=== PATIENT | male | born 1980 | race Caucasian/White ===

== ENCOUNTER 2019-02-17 11:54 | Inpatient (IN) | payer OTHER ==
[2019-02-17] MEDS ORDERED: FENTANYL CITRATE INJ/PF 100 MCG/2 ML AMPUL IV ONE ×2 (12:22→13:37)
[2019-02-17] MEDS ORDERED: ONDANSETRON HCL INJ/PF 4 MG/2 ML SDV IV ONE (12:22)
--- NOTE | 2019-02-17 12:27 | ER Document Report ---
ED Medical Screen (RME) - General Chief Complaint: Abdominal Pain Stated Complaint: ABDOMINAL PAIN Time Seen by Provider: 02/17/19 12:19 Primary Care Provider: ERNIE BOWLES MD [Primary Care Provider] - Follow up as needed Notes: Patient is a 38-year-old male presents to the emergency department with generalized epigastric and right upper quadrant abdominal pain. Patient states he started with generalized pain and vomiting this morning. Patient's denying any blood in his emesis. Patient states he has generalized pain right upper quadrant and epigastric. Patient is denying any ripping or tearing sensation through to his back. Patient's denying any history of hypertension although was hypertensive in the emergency room. Patient is denying any abdominal surgeries. GENERAL: Alert, interacts well. Obvious distress, intermittently moaning and holding his right upper quadrant. ABDOMEN: Generalized tenderness noted right upper quadrant and epigastric region. No tenderness noted right lower quadrant, left lower quadrant. I have greeted and performed a rapid initial assessment of this patient. A comprehensive ED assessment and evaluation of the patient, analysis of test results and completion of the medical decision making process will be conducted by additional ED providers. I have specifically instructed the patient or family members with the patient to immediately return to any nursing staff should anything change in the patient's condition or with their chief complaint. This medical record was dictated with voice recognizing software. There may be grammatical, syntax errors that are unintended. - Related Data Allergies/Adverse Reactions: amoxicillin Allergy (Verified 02/17/19 12:10) Physical Exam - Vital signs Vitals: Temp Pulse Resp BP Pulse Ox 98.2 F 71 24 H 188/99 H 97 02/17/19 12:05 02/17/19 12:05 02/17/19 12:05 02/17/19 12:05 02/17/19 12:05 Course - Vital Signs Vital signs: Temp Pulse Resp BP Pulse Ox 98.2 F 71 24 H 188/99 H 97 02/17/19 12:05 02/17/19 12:05 02/17/19 12:05 02/17/19 12:05 02/17/19 12:05 Doctor's Discharge - Discharge Referrals: ERNIE BOWLES MD [Primary Care Provider] - Follow up as needed
[2019-02-17 13:01] LABS: APPEARANCE,URINE CLEAR; BILIRUBIN,URINE NEGATIVE (NEGATIVE); COLOR,URINE YELLOW; GLUCOSE, URINE NEGATIVE (NEGATIVE); KETONES,URINE NEGATIVE (NEGATIVE); LEUKOCYTE ESTERASE,URINE NEGATIVE (NEGATIVE); NITRITE,URINE NEGATIVE (NEGATIVE); PROTEIN,URINE NEGATIVE (NEGATIVE); URINE SPECIFIC GRAVITY 1.023; UROBILINOGEN,URINE NEGATIVE mg/dL (<2.0)
[2019-02-17 13:09] LABS: ABSOLUTE MONOCYTES (AUTO) 0.5 10^3/uL (0.1-1.4); ABSOLUTE NEUT (AUTO) 14.6 10^3/uL (1.7-8.2); BASOPHILS % (AUTO) 0.1 % (0-2); HEMATOCRIT 47.9 % (37.9-51.0); HEMOGLOBIN 16.4 g/dL (13.5-17.0); MEAN CORPUSCULAR HEMOGLOBIN 30.6 pg (27.0-33.4); MEAN CORPUSCULAR HGB CONC 34.2 g/dL (32.0-36.0); MEAN CORPUSCULAR VOLUME 89 fl (80-97); PLATELET COUNT 291 10^3/uL (150-450); RED BLOOD COUNT 5.36 10^6/uL (4.35-5.55); RED CELL DISTRIBUTION WIDTH 14.2 % (11.5-14.0); SEGMENTED NEUTROPHILS % (AUTO) 90.9 % (42-78); TOTAL CELLS COUNTED % (AUTO) 100 %; WHITE BLOOD COUNT 16.1 10^3/uL (4.0-10.5)
[2019-02-17] MEDS ORDERED: RINGERS SOLUTION,LACTATED 1,000 ML IV ONE (13:37)
--- NOTE | 2019-02-17 13:39 | ER Document Report ---
ED General - General Chief Complaint: Abdominal Pain Stated Complaint: ABDOMINAL PAIN Time Seen by Provider: 02/17/19 12:19 Primary Care Provider: ERNIE BOWLES MD [ACTIVE STAFF] - Follow up as needed Notes: Patient is a 38-year-old male that presents to the emergency department for chief complaint of epigastric pain. Patient states the pain started on 230am this morning, describes it in the right side of his abdomen as well as the epigastric region worse the worse, describes it as a sharp stabbing pain, and currently as a 5 out of 10 after receiving fentanyl in triage. It associated nausea and vomiting but denies diarrhea. He has not had pain like this before. He apparently is in town for his father's , and has been drinking excessively over the past 2 days. He denies any recent fevers, chills, night sweats, sick contacts, chest pain, shortness of breath, difficulty breathing, dysuria or hematuria. Past Medical History: Denies chronic medical conditions Past Surgical History: Skin cyst removals Social History: Admits to smoking cigarettes, occasional alcohol use, denies illicit drug use. Family History: Reviewed and noncontributory for presenting illness Allergies: Reviewed, see documented allergy list. REVIEW OF SYSTEMS: Other than noted above, the 12 point review of systems was reviewed with the patient and were negative, all pertinent findings are included in the HPI. PHYSICAL EXAMINATION: Vital signs reviewed, nursing noted reviewed. GENERAL: Patient appears uncomfortable on exam, but in no immediate distress. HEAD: Atraumatic, normocephalic. EYES: Eyes appear normal, extraocular movements intact, sclera anicteric, conjunctiva are normal. ENT: nares patent, oropharynx clear without exudates. Moist mucous membranes. NECK: Normal range of motion, supple without lymphadenopathy LUNGS: Breath sounds clear to auscultation bilaterally and equal. No wheezes rales or rhonchi. HEART: Regular rate and rhythm without murmurs ABDOMEN: Soft, epigastric tenderness to palpation, mild right upper quadrant tenderness to palpation, negative Saini sign., normoactive bowel sounds. No rebound, guarding, or rigidity. No masses appreciated. EXTREMITIES: Nontender, good range of motion, no pitting or edema. NEUROLOGICAL: No focal neurological deficits. Moves all extremities spontaneously Motor and sensory grossly intact on exam. PSYCH: Normal mood, normal affect. SKIN: Warm, Dry, normal turgor, no rashes or lesions noted on exposed skin - Related Data Allergies/Adverse Reactions: amoxicillin Allergy (Verified 02/17/19 12:10) Past Medical History - Social History Smoking Status: Current Every Day Smoker Frequency of alcohol use: Occasional Drug Abuse: None Family History: Reviewed & Not Pertinent Patient has suicidal ideation: No Patient has homicidal ideation: No Renal/ Medical History: Denies: Hx Peritoneal Dialysis Physical Exam - Vital signs Vitals: Temp Pulse Resp BP Pulse Ox 98.2 F 71 24 H 188/99 H 97 02/17/19 12:05 02/17/19 12:05 02/17/19 12:05 02/17/19 12:05 02/17/19 12:05 Course - Re-evaluation Re-evalutation: Patient seen and examined vital signs reviewed. Laboratory data and imaging were ordered as appropriate for the patient's presenting symptoms and complaint, with consideration of any critical or life threatening conditions that may be associated with their obtained history and exam as noted above. Patient was treated with IVF and analgesics Results were reviewed when available and demonstrated leukocytosis and markedly elevated lipase The patient was re-evaluated and was still having pain and therefore treated with additional pain medications Evaluation was most consistent with acute alcohol induced pancreatitis. Results were discussed with the patient at this point after careful consideration I feel that that patient should be admitted to the hospital. This was discussed with the patient that it is in the best interest for their care to be admitted for further evaluation and management. Patient agreed with this plan of care. A call was placed to the admitting physician, Dr. Jeff who graciously accepted the patient onto their service. *Note is created using voice recognition software and may contain spelling, syntax or grammatical errors. Laboratory 02/17/19 02/17/19 02/17/19 12:30 12:47 12:47 WBC 16.1 H RBC 5.36 Hgb 16.4 Hct 47.9 MCV 89 MCH 30.6 MCHC 34.2 RDW 14.2 H Plt Count 291 Seg Neutrophils % 90.9 H Lymphocytes % 6.0 L Monocytes % 3.0 Eosinophils % 0.0 Basophils % 0.1 Absolute Neutrophils 14.6 H Absolute Lymphocytes 1.0 Absolute Monocytes 0.5 Absolute Eosinophils 0.0 Absolute Basophils 0.0 Sodium Cancelled Potassium Cancelled Chloride Cancelled Carbon Dioxide Cancelled Anion Gap Cancelled BUN Cancelled Creatinine Cancelled Est GFR ( Amer) Cancelled Est GFR (Non-Af Amer) Cancelled Glucose Cancelled Calcium Cancelled Total Bilirubin Cancelled Direct Bilirubin Cancelled Neonat Total Bilirubin Cancelled Neonat Direct Bilirubin Cancelled Neonat Indirect Bili Cancelled AST Cancelled ALT Cancelled Alkaline Phosphatase Cancelled Total Protein Cancelled Albumin Cancelled Lipase Cancelled Urine Color YELLOW Urine Appearance CLEAR Urine pH 5.0 Ur Specific [place] 1.023 Urine Protein NEGATIVE Urine Glucose (UA) NEGATIVE Urine Ketones NEGATIVE Urine Blood NEGATIVE Urine Nitrite NEGATIVE Urine Bilirubin NEGATIVE Urine Urobilinogen NEGATIVE Ur Leukocyte Esterase NEGATIVE Urine WBC (Auto) 0 Squamous Epi Cells Auto <1 Urine Mucus (Auto) OCC Urine Ascorbic Acid NEGATIVE 02/17/19 14:43 WBC RBC Hgb Hct MCV MCH MCHC RDW Plt Count Seg Neutrophils % Lymphocytes % Monocytes % Eosinophils % Basophils % Absolute Neutrophils Absolute Lymphocytes Absolute Monocytes Absolute Eosinophils Absolute Basophils Sodium 139.9 Potassium 4.6 Chloride 101 Carbon Dioxide 29 Anion Gap 10 BUN 14 Creatinine 0.76 Est GFR ( Amer) > 60 Est GFR (Non-Af Amer) > 60 Glucose 127 H Calcium 9.9 Total Bilirubin 0.5 Direct Bilirubin 0.2 Neonat Total Bilirubin Not Reportable Neonat Direct Bilirubin Not Reportable Neonat Indirect Bili Not Reportable AST 38 ALT 57 Alkaline Phosphatase 109 Total Protein 7.3 Albumin 4.5 Lipase 3128.2 H Urine Color Urine Appearance Urine pH Ur Specific [place] Urine Protein Urine Glucose (UA) Urine Ketones Urine Blood Urine Nitrite Urine Bilirubin Urine Urobilinogen Ur Leukocyte Esterase Urine WBC (Auto) Squamous Epi Cells Auto Urine Mucus (Auto) Urine Ascorbic Acid Abdomen Ultrasound 02/17/19 12:23 IMPRESSION: Fatty liver. Spleen size upper limits of normal. - Vital Signs Vital signs: Temp Pulse Resp BP Pulse Ox 98.2 F 71 26 H 157/67 H 95 02/17/19 12:05 02/17/19 12:05 02/17/19 14:01 02/17/19 14:01 02/17/19 14:01 - Laboratory Result Diagrams: 02/17/19 12:47 02/17/19 14:43 Laboratory results interpreted by me: 02/17/19 02/17/19 12:47 14:43 WBC 16.1 H RDW 14.2 H Seg Neutrophils % 90.9 H Lymphocytes % 6.0 L Absolute Neutrophils 14.6 H Glucose 127 H Lipase 3128.2 H Discharge - Discharge Clinical Impression: Acute pancreatitis Qualifiers: Pancreatitis type: alcohol induced Acute pancreatitis complication: unspecified Qualified Code(s): K85.20 - Alcohol induced acute pancreatitis without necrosis or infection Leukocytosis Qualifiers: Leukocytosis type: unspecified Qualified Code(s): D72.829 - Elevated white blood cell count, unspecified Condition: Stable Disposition: ADMITTED INPATIENT Admitting Provider: Tomer (Hospitalist) Unit Admitted: Medical Floor Referrals: ERNIE BOWLES MD [ACTIVE STAFF] - Follow up as needed
--- NOTE | 2019-02-17 13:41 | RADIOLOGY REPORT (SQ) ---
EXAM DESCRIPTION: U/S ABDOMEN COMPLETE W/O DOP COMPLETED DATE/TIME: 02/17/2019 1:22 pm REASON FOR STUDY: RUQ pain COMPARISON: None. TECHNIQUE: Dynamic and static grayscale images acquired of the abdomen and recorded on PACS. Farhato yogesh selected color Doppler and spectral images recorded. LIMITATIONS: Body habitus. Overlying bowel gas. FINDINGS: PANCREAS: Obscured. LIVER: Echotexture is coarse with increased echogenicity consistent with fatty infiltration. LIVER VASCULATURE: Normal directional flow of the main portal vein and hepatic veins. GALLBLADDER: No stones. Normal wall thickness. No pericholecystic fluid. ULTRASOUND-DETECTED JOYNER'S SIGN: Negative. INTRAHEPATIC DUCTS AND COMMON DUCT: CBD and intrahepatic ducts normal caliber. No filling defects. INFERIOR VENA CAVA: Normal flow. AORTA: No aneurysm. RIGHT KIDNEY: Normal size. Normal echogenicity. No solid or suspicious masses. No hydronephros is. No calcifications. LEFT KIDNEY: Normal size. Normal echogenicity. No solid or suspicious masses. No hydronephrosi s. No calcifications. SPLEEN:Upper limits normal size 13.7 cm. No solid masses. PERITONEAL AND PLEURAL SPACES: No ascites or effusions. OTHER: No other significant finding. IMPRESSION: Fatty liver. Spleen size upper limits of normal. TECHNICAL DOCUMENTATION: JOB ID: [id number] [employer]- All Rights Reserved Reading location - IP/workstation name: [email or web address]
[2019-02-17 15:18] LABS: ALANINE AMINOTRANSFERASE 57 U/L (21-72); ALBUMIN 4.5 g/dL (3.5-5.0); ALKALINE PHOSPHATASE 109 U/L (38-126); ANION GAP 10 (5-19); ASPARTATE AMINO TRANSFERASE 38 U/L (17-59); BILIRUBIN,DIRECT 0.2 mg/dL (0.0-0.4); BILIRUBIN,TOTAL 0.5 mg/dL (0.2-1.3); BLOOD UREA NITROGEN 14 mg/dL (7-20); CALCIUM 9.9 mg/dL (8.4-10.2); CARBON DIOXIDE 29 mmol/L (22-30); CHLORIDE 101 mmol/L (98-107); GLUCOSE 127 mg/dL (75-110); POTASSIUM 4.6 mmol/L (3.6-5.0); SODIUM 139.9 mmol/L (137-145); TOTAL PROTEIN 7.3 g/dL (6.3-8.2)
[2019-02-17 15:28] LABS: LIPASE 3128.2 U/L (23-300)
[2019-02-17] MEDS ORDERED: HYDROMORPHONE HCL INJ/PF 2 MG/ML AMPULE IV ONE ×2 (15:37→16:06)
[2019-02-17] MEDS ORDERED: NORMAL SALINE 1000 ML 1,000 ML IV ONE (15:37)
[2019-02-17] MEDS ORDERED: ONDANSETRON HCL INJ/PF 4 MG/2 ML SDV IV PRN (16:03)
[2019-02-17] MEDS ORDERED: NICOTINE 14 MG/24 HR PATCH.TD24 TD ONE (16:17)
--- NOTE | 2019-02-17 16:17 | PDOC H&P ---
History of Present Illness History of Present Illness: MARITO SORENSEN is a 38 year old male patient with no other chronic medical condition except for obesity and tobacco dependence presented with chief complaint of epigastric colicky pain. The patient been perfectly good state of health up until 2:30 AM this morning when he started to have colicky abdominal pain localized to his epigastric area and radiating into his back. Of note patient has been binge drinking for the last 48 hours. He has associated nausea and vomiting but denies diarrhea. Patient is in [place] to attend the of his father. His initial blood work shows leukocytosis of 16,000 and markedly elevated lipase of 3100. Social History Smoking Status: Current Every Day Smoker - Advance Directive Resuscitation Status: Full Code Family History Family History: Reviewed & Not Pertinent Parental Family History Reviewed: Yes Children Family History Reviewed: Yes Sibling(s) Family History Reviewed.: Yes Medication/Allergy Home Medications: No Home Medications 02/17/19 Allergies/Adverse Reactions: amoxicillin Allergy (Verified 02/17/19 12:10) Review of Systems Constitutional: ABSENT: chills, fever(s), headache(s), weight gain, weight loss Eyes: ABSENT: visual disturbances Ears: ABSENT: hearing changes Cardiovascular: ABSENT: chest pain, dyspnea on exertion, edema, orthropnea, palpitations Respiratory: ABSENT: cough, hemoptysis Gastrointestinal: PRESENT: abdominal pain, nausea, vomiting Genitourinary: ABSENT: dysuria, hematuria Musculoskeletal: ABSENT: joint swelling Integumentary: ABSENT: rash, wounds Neurological: ABSENT: abnormal gait, abnormal speech, confusion, dizziness, focal weakness, syncope Psychiatric: ABSENT: anxiety, depression, homidical ideation, suicidal ideation Endocrine: ABSENT: cold intolerance, heat intolerance, polydipsia, polyuria Hematologic/Lymphatic: ABSENT: easy bleeding, easy bruising Physical Exam Vital Signs: Temp Pulse Resp BP Pulse Ox 98.2 F 71 26 H 157/67 H 95 02/17/19 12:05 02/17/19 12:05 02/17/19 14:01 02/17/19 14:01 02/17/19 14:01 Intake & Output 02/16/19 02/17/19 02/18/19 06:59 06:59 06:59 Weight 130.635 kg General appearance: PRESENT: no acute distress, obese, well-developed, well- nourished Head exam: PRESENT: atraumatic, normocephalic Eye exam: PRESENT: conjunctiva pink, EOMI, PERRLA. ABSENT: scleral icterus Ear exam: PRESENT: normal external ear exam Mouth exam: PRESENT: moist, tongue midline Neck exam: ABSENT: carotid bruit, JVD, lymphadenopathy, thyromegaly Respiratory exam: PRESENT: clear to auscultation niels. ABSENT: rales, rhonchi, wheezes Cardiovascular exam: PRESENT: RRR. ABSENT: diastolic murmur, rubs, systolic murmur Pulses: PRESENT: normal dorsalis pedis pul Vascular exam: PRESENT: normal capillary refill GI/Abdominal exam: PRESENT: normal bowel sounds, soft, tenderness. ABSENT: distended, guarding, mass, organolmegaly, rebound Rectal exam: PRESENT: deferred Extremities exam: PRESENT: full ROM. ABSENT: calf tenderness, clubbing, pedal edema Neurological exam: PRESENT: alert, awake, oriented to person, oriented to place, oriented to time, oriented to situation, CN II-XII grossly intact. ABSENT: motor sensory deficit Psychiatric exam: PRESENT: appropriate affect, normal mood. ABSENT: homicidal ideation, suicidal ideation Skin exam: PRESENT: dry, intact, warm. ABSENT: cyanosis, rash Results Laboratory Results: 02/17/19 12:47 02/17/19 14:43 02/17/19 02/17/19 02/17/19 12:30 12:47 12:47 WBC 16.1 H RBC 5.36 Hgb 16.4 Hct 47.9 MCV 89 MCH 30.6 MCHC 34.2 RDW 14.2 H Plt Count 291 Seg Neutrophils % 90.9 H Lymphocytes % 6.0 L Monocytes % 3.0 Eosinophils % 0.0 Basophils % 0.1 Absolute Neutrophils 14.6 H Absolute Lymphocytes 1.0 Absolute Monocytes 0.5 Absolute Eosinophils 0.0 Absolute Basophils 0.0 Sodium Cancelled Potassium Cancelled Chloride Cancelled Carbon Dioxide Cancelled Anion Gap Cancelled BUN Cancelled Creatinine Cancelled Est GFR ( Amer) Cancelled Est GFR (Non-Af Amer) Cancelled Glucose Cancelled Calcium Cancelled Total Bilirubin Cancelled AST Cancelled ALT Cancelled Alkaline Phosphatase Cancelled Total Protein Cancelled Albumin Cancelled Lipase Cancelled Urine Color YELLOW Urine Appearance CLEAR Urine pH 5.0 Ur Specific [place] 1.023 Urine Protein NEGATIVE Urine Glucose (UA) NEGATIVE Urine Ketones NEGATIVE Urine Blood NEGATIVE Urine Nitrite NEGATIVE Ur Leukocyte Esterase NEGATIVE Urine WBC (Auto) 0 02/17/19 14:43 WBC RBC Hgb Hct MCV MCH MCHC RDW Plt Count Seg Neutrophils % Lymphocytes % Monocytes % Eosinophils % Basophils % Absolute Neutrophils Absolute Lymphocytes Absolute Monocytes Absolute Eosinophils Absolute Basophils Sodium 139.9 Potassium 4.6 Chloride 101 Carbon Dioxide 29 Anion Gap 10 BUN 14 Creatinine 0.76 Est GFR ( Amer) > 60 Est GFR (Non-Af Amer) > 60 Glucose 127 H Calcium 9.9 Total Bilirubin 0.5 AST 38 ALT 57 Alkaline Phosphatase 109 Total Protein 7.3 Albumin 4.5 Lipase 3128.2 H Urine Color Urine Appearance Urine pH Ur Specific [place] Urine Protein Urine Glucose (UA) Urine Ketones Urine Blood Urine Nitrite Ur Leukocyte Esterase Urine WBC (Auto) Impressions: Abdomen Ultrasound 02/17/19 12:23 IMPRESSION: Fatty liver. Spleen size upper limits of normal. Assessment and Plan - Diagnosis (1) Acute alcohol induced pancreatitis Is this a current diagnosis for this admission?: Yes Plan: We will keep the patient n.p.o. to bowel his wrist. We will hydrate him aggressively. We will control his pain. (2) Leukocytosis Qualifiers: Leukocytosis type: unspecified Qualified Code(s): D72.829 - Elevated white blood cell count, unspecified Is this a current diagnosis for this admission?: Yes Plan: We will monitor CBC. (3) Obesity (BMI 30-39.9) Is this a current diagnosis for this admission?: Yes Plan: Lifestyle modification advised (4) Tobacco dependence Is this a current diagnosis for this admission?: Yes Plan: Patient counseled and encouraged to quit smoking. - Inpatient Certification Medical Necessity: Need Close Monitoring Due to Risk of Patient Decompensation, Need For IV Fluids
[2019-02-17] MEDS: HYDROMORPHONE HCL INJ/PF 2 MG/ML AMPULE IV PRN ×2 (16:35→20:06)
[2019-02-17] MEDS: NORMAL SALINE 1000 ML 1,000 ML IV PRN (18:52)
[2019-02-18] MEDS: HYDROMORPHONE HCL INJ/PF 2 MG/ML AMPULE IV PRN ×6 (00:49→22:22)
[2019-02-18] MEDS: NORMAL SALINE 1000 ML 1,000 ML IV PRN ×4 (00:51→20:28)
[2019-02-18 05:30] LABS: ABSOLUTE LYMPHOCYTES (AUTO) 1.2 10^3/uL (0.5-4.7); ABSOLUTE MONOCYTES (AUTO) 0.7 10^3/uL (0.1-1.4); ABSOLUTE NEUT (AUTO) 11.6 10^3/uL (1.7-8.2); BASOPHILS % (AUTO) 0.2 % (0-2); HEMATOCRIT 40.4 % (37.9-51.0); LYMPHOCYTES % (AUTO) 8.7 % (13-45); MEAN CORPUSCULAR HEMOGLOBIN 30.7 pg (27.0-33.4); MEAN CORPUSCULAR HGB CONC 34.5 g/dL (32.0-36.0); MEAN CORPUSCULAR VOLUME 89 fl (80-97); MONOCYTES % (AUTO) 5.3 % (3-13); PLATELET COUNT 224 10^3/uL (150-450); RED BLOOD COUNT 4.54 10^6/uL (4.35-5.55); RED CELL DISTRIBUTION WIDTH 14.2 % (11.5-14.0); SEGMENTED NEUTROPHILS % (AUTO) 85.8 % (42-78); TOTAL CELLS COUNTED % (AUTO) 100 %; WHITE BLOOD COUNT 13.5 10^3/uL (4.0-10.5)
[2019-02-18 05:40] LABS: HEMOGLOBIN 13.9 g/dL (13.5-17.0)
[2019-02-18 06:00] LABS: ALANINE AMINOTRANSFERASE 42 U/L (21-72); ALBUMIN 3.5 g/dL (3.5-5.0); ALKALINE PHOSPHATASE 82 U/L (38-126); ASPARTATE AMINO TRANSFERASE 28 U/L (17-59); BILIRUBIN,DIRECT 0.3 mg/dL (0.0-0.4); BILIRUBIN,TOTAL 0.7 mg/dL (0.2-1.3); BLOOD UREA NITROGEN 12 mg/dL (7-20); CALCIUM 8.8 mg/dL (8.4-10.2); CARBON DIOXIDE 30 mmol/L (22-30); CHLORIDE 103 mmol/L (98-107); CHOLESTEROL 220.71 mg/dL (0-200); GLUCOSE 117 mg/dL (75-110); POTASSIUM 4.7 mmol/L (3.6-5.0); SODIUM 136.9 mmol/L (137-145); TOTAL PROTEIN 5.9 g/dL (6.3-8.2); TRIGLYCERIDES 102 mg/dL (<150)
[2019-02-18 06:11] LABS: DIRECT LDL 161 mg/dL (<100)
[2019-02-18 06:24] LABS: ANION GAP 4 (5-19)
[2019-02-18 06:40] LABS: LIPASE 4525.9 U/L (23-300)
[2019-02-18] MEDS: PANTOPRAZOLE SODIUM 40 MG VIAL IV SCH (09:31)
[2019-02-18] MEDS: ENOXAPARIN SODIUM INJ 40 MG/0.4 ML DISP.SYRIN SUBCUT SCH (09:31)
--- NOTE | 2019-02-18 11:33 | RADIOLOGY REPORT (SQ) ---
EXAM DESCRIPTION: CT ABD/PELVIS WITH IV ONLY COMPLETED DATE/TIME: 02/18/2019 11:04 am REASON FOR STUDY: Pancreatitis COMPARISON: None. TECHNIQUE: CT scan of the abdomen and pelvis performed using helical scanning technique with dynamic intravenous contrast injection. No oral contrast. Images reviewed with lung, soft tissue, and bone windows. Reconstructed coronal and sagittal MPR images reviewed. Delayed images for evaluation of the urinary system also acquired. All images stored on PACS. All CT scanners at this facility use dose modulation, iterative reconstruction, and/or weight based d osing when appropriate to reduce radiation dose to as low as reasonably achievable (ALARA). [facility]: Dose Right [facility]: CareDose [facility]: Dose Right [facility]: Teradose 4D [facility]: Blend Systems CONTRAST TYPE AND DOSE: contrast/concentration: Isovue 350.00 mg/ml; Total Contrast Delivered: 100.0 ml; Total Saline Delivered: 72.0 ml RENAL FUNCTION: GFR > 60. RADIATION DOSE: CT Rad equipment meets quality standard of care and radiation dose reduction techniq ues were employed. CTDIvol: 20.1 - 21.0 mGy. DLP: 2546 mGy-cm.. LIMITATIONS: None. FINDINGS: LOWER CHEST: Atelectasis both lower lobes. LIVER: Normal size. No masses. No dilated ducts. SPLEEN: Normal size. No focal lesions. PANCREAS: Inflammatory changes surrounding the pancreas. No evidence of underlying mass. No evidenc e of necrosis. GALLBLADDER: No identified stones by CT criteria. No inflammatory changes to suggest cholecystitis. ADRENAL GLANDS: No significant masses or asymmetry. RIGHT KIDNEY AND URETER: No solid masses. No significant calcifications. No hydronephrosis or hyd roureter. LEFT KIDNEY AND URETER: No solid masses. No significant calcifications. No hydronephrosis or hydr oureter. AORTA AND VESSELS: No aneurysm. No dissection. Renal arteries, SMA, celiac without stenosis. RETROPERITONEUM: No retroperitoneal adenopathy, hemorrhage or masses. BOWEL AND PERITONEAL CAVITY: No masses or inflammatory changes. No free fluid or peritoneal masses. APPENDIX: Normal. PELVIS: No mass. No free fluid. Normal bladder. ABDOMINAL WALL: No masses. No hernias. BONES: No significant or acute findings. OTHER: No other significant finding. IMPRESSION: Acute pancreatitis. TECHNICAL DOCUMENTATION: JOB ID: [id number] Quality ID # [id number]: Final reports with documentation of one or more dose reduction techniques (e.g., Au tomated exposure control, adjustment of the mA and/or kV according to patient size, use of iterative reconstruction technique) 2010 [employer]- All Rights Reserved Reading location - IP/workstation name: [email or web address]
--- NOTE | 2019-02-18 14:59 | PDOC PROGRESS REPORT ---
Subjective Progress Note for:: 02/18/19 Subjective:: MARITO SORENSEN is a 38 year old male patient with no other chronic medical condition except for obesity and tobacco dependence presented with chief complaint of epigastric colicky pain. The patient been perfectly good state of health up until 2:30 AM this morning when he started to have colicky abdominal pain localized to his epigastric area and radiating into his back. Of note patient has been binge drinking for the last 48 hours. He has associated nausea and vomiting but denies diarrhea. Patient is in [place] to attend the of his father. His initial blood work shows leukocytosis of 16,000 and markedly elevated lipase of 3100. 02/18/2019: Patient seen and examined while resting in bed. He reports his his abdominal pain is still there but relatively better than yesterday. His blood work and images were reviewed. His lipase yesterday was 3100 today it is 4525.9. His LDL is 161. CT of the abdomen and pelvis is done and reported as acute inflammatory changes without fluid collection or necrosis. I will continue the current management with aggressive hydration bowel rest and pain control. Reason For Visit: ALCOHOL INDUCED PANCREATITIS Physical Exam Vital Signs: Temp Pulse Resp BP Pulse Ox 98.4 F 90 18 145/74 H 92 02/18/19 12:00 02/18/19 12:00 02/18/19 12:00 02/18/19 12:00 02/18/19 12:00 Intake & Output 02/17/19 02/18/19 02/19/19 06:59 06:59 06:59 Intake Total 4000 Output Total 1150 Balance 2850 Weight 132 kg General appearance: PRESENT: mild distress Eye exam: PRESENT: conjunctiva pink Neck exam: ABSENT: carotid bruit, JVD, lymphadenopathy, thyromegaly Respiratory exam: PRESENT: clear to auscultation niels. ABSENT: rales, rhonchi, wheezes Cardiovascular exam: PRESENT: RRR. ABSENT: diastolic murmur, rubs, systolic murmur GI/Abdominal exam: PRESENT: normal bowel sounds, soft. ABSENT: distended, guarding, mass, organolmegaly, rebound, tenderness Neurological exam: PRESENT: alert, awake, oriented to person, oriented to time, oriented to situation Results Laboratory Results: 02/18/19 04:52 02/18/19 04:52 02/17/19 02/18/19 02/18/19 14:43 04:52 04:52 WBC 13.5 H RBC 4.54 Hgb 13.9 D Hct 40.4 MCV 89 MCH 30.7 MCHC 34.5 RDW 14.2 H Plt Count 224 Seg Neutrophils % 85.8 H Lymphocytes % 8.7 L Monocytes % 5.3 Eosinophils % 0.0 Basophils % 0.2 Absolute Neutrophils 11.6 H Absolute Lymphocytes 1.2 Absolute Monocytes 0.7 Absolute Eosinophils 0.0 Absolute Basophils 0.0 Sodium 139.9 136.9 L Potassium 4.6 4.7 Chloride 101 103 Carbon Dioxide 29 30 Anion Gap 10 4 L BUN 14 12 Creatinine 0.76 0.75 Est GFR ( Amer) > 60 > 60 Est GFR (Non-Af Amer) > 60 > 60 Glucose 127 H 117 H Calcium 9.9 8.8 Total Bilirubin 0.5 0.7 AST 38 28 ALT 57 42 Alkaline Phosphatase 109 82 Total Protein 7.3 5.9 L Albumin 4.5 3.5 Triglycerides 102 Cholesterol 220.71 H LDL Cholesterol Direct 161 H VLDL Cholesterol 20.0 HDL Cholesterol 38 L Lipase 3128.2 H 4525.9 H Impressions: Abdomen Ultrasound 02/17/19 12:23 IMPRESSION: Fatty liver. Spleen size upper limits of normal. Abdomen/Pelvis CT 02/18/19 00:00 IMPRESSION: Acute pancreatitis. Assessment and Plan - Diagnosis (1) Acute alcohol induced pancreatitis Is this a current diagnosis for this admission?: Yes Plan: Continue current regimen. I will monitor his lipase and CBC daily. (2) Leukocytosis Qualifiers: Leukocytosis type: unspecified Qualified Code(s): D72.829 - Elevated white blood cell count, unspecified Is this a current diagnosis for this admission?: Yes Plan: Trending down from 6.1-13.5. (3) Obesity (BMI 30-39.9) Is this a current diagnosis for this admission?: Yes Plan: Lifestyle modification advised (4) Tobacco dependence Is this a current diagnosis for this admission?: Yes Plan: Patient counseled and encouraged to quit smoking.
[2019-02-19] MEDS: NORMAL SALINE 1000 ML 1,000 ML IV PRN ×3 (00:46→20:00)
[2019-02-19] MEDS: HYDROMORPHONE HCL INJ/PF 2 MG/ML AMPULE IV PRN ×9 (00:46→22:45)
[2019-02-19 06:49] LABS: ABSOLUTE LYMPHOCYTES (AUTO) 0.9 10^3/uL (0.5-4.7); ABSOLUTE NEUT (AUTO) 11.3 10^3/uL (1.7-8.2); BASOPHILS % (AUTO) 0.3 % (0-2); HEMOGLOBIN 12.8 g/dL (13.5-17.0); LYMPHOCYTES % (AUTO) 6.9 % (13-45); MEAN CORPUSCULAR HEMOGLOBIN 30.3 pg (27.0-33.4); MEAN CORPUSCULAR HGB CONC 33.7 g/dL (32.0-36.0); MEAN CORPUSCULAR VOLUME 90 fl (80-97); MONOCYTES % (AUTO) 7.8 % (3-13); PLATELET COUNT 200 10^3/uL (150-450); RED BLOOD COUNT 4.24 10^6/uL (4.35-5.55); RED CELL DISTRIBUTION WIDTH 14.1 % (11.5-14.0); TOTAL CELLS COUNTED % (AUTO) 100 %; WHITE BLOOD COUNT 13.3 10^3/uL (4.0-10.5)
[2019-02-19 07:09] LABS: ANION GAP 6 (5-19); BLOOD UREA NITROGEN 12 mg/dL (7-20); CALCIUM 8.3 mg/dL (8.4-10.2); CARBON DIOXIDE 29 mmol/L (22-30); CHLORIDE 99 mmol/L (98-107); GLUCOSE 99 mg/dL (75-110); LIPASE 868.9 U/L (23-300); POTASSIUM 4.1 mmol/L (3.6-5.0); SODIUM 133.9 mmol/L (137-145)
[2019-02-19] MEDS: PANTOPRAZOLE SODIUM 40 MG VIAL IV SCH (09:16)
[2019-02-19] MEDS: ENOXAPARIN SODIUM INJ 40 MG/0.4 ML DISP.SYRIN SUBCUT SCH (09:16)
[2019-02-19] MEDS: NICOTINE 14 MG/24 HR PATCH.TD24 TD PRN (12:07)
--- NOTE | 2019-02-19 14:41 | PDOC PROGRESS REPORT ---
Subjective Progress Note for:: 02/19/19 Subjective:: MARITO SORENSEN is a 38 year old male patient with no other chronic medical condition except for obesity and tobacco dependence presented with chief complaint of epigastric colicky pain. The patient been perfectly good state of health up until 2:30 AM this morning when he started to have colicky abdominal pain localized to his epigastric area and radiating into his back. Of note patient has been binge drinking for the last 48 hours. He has associated nausea and vomiting but denies diarrhea. Patient is in [place] to attend the of his father. His initial blood work shows leukocytosis of 16,000 and markedly elevated lipase of 3100. 02/18/2019: Patient seen and examined while resting in bed. He reports his his abdominal pain is still there but relatively better than yesterday. His blood work and images were reviewed. His lipase yesterday was 3100 today it is 4525.9. His LDL is 161. CT of the abdomen and pelvis is done and reported as acute inflammatory changes without fluid collection or necrosis. I will continue the current management with aggressive hydration bowel rest and pain control. 02/19/2019: Patient seen while walking on the hallway as well as resting in bed comfortably. He is doing well. Still is n.p.o. His lipase trended down from 4525 to 868. His leukocytosis also resolving. Tomorrow will advance his diet to clear liquid. Reason For Visit: ALCOHOL INDUCED PANCREATITIS Physical Exam Vital Signs: Temp Pulse Resp BP Pulse Ox 100.0 F 84 13 132/59 H 93 02/19/19 11:35 02/19/19 11:35 02/19/19 11:35 02/19/19 11:35 02/19/19 11:35 Intake & Output 02/18/19 02/19/19 02/20/19 06:59 06:59 06:59 Intake Total 4000 4000 1000 Output Total 1150 2200 Balance 2850 1800 1000 Weight 132 kg General appearance: PRESENT: no acute distress Neck exam: ABSENT: carotid bruit, JVD, lymphadenopathy, thyromegaly Respiratory exam: PRESENT: clear to auscultation niels. ABSENT: rales, rhonchi, wheezes Cardiovascular exam: PRESENT: RRR. ABSENT: diastolic murmur, rubs, systolic murmur GI/Abdominal exam: PRESENT: tenderness Neurological exam: PRESENT: alert, awake, oriented to person, oriented to place, oriented to time, oriented to situation Results Laboratory Results: 02/19/19 06:05 02/19/19 06:05 02/19/19 02/19/19 06:05 06:05 WBC 13.3 H RBC 4.24 L Hgb 12.8 L Hct 38.0 MCV 90 MCH 30.3 MCHC 33.7 RDW 14.1 H Plt Count 200 Seg Neutrophils % 85.0 H Lymphocytes % 6.9 L Monocytes % 7.8 Eosinophils % 0.0 Basophils % 0.3 Absolute Neutrophils 11.3 H Absolute Lymphocytes 0.9 Absolute Monocytes 1.0 Absolute Eosinophils 0.0 Absolute Basophils 0.0 Sodium 133.9 L Potassium 4.1 Chloride 99 Carbon Dioxide 29 Anion Gap 6 BUN 12 Creatinine 0.73 Est GFR ( Amer) > 60 Est GFR (Non-Af Amer) > 60 Glucose 99 Calcium 8.3 L Lipase 868.9 H Impressions: Abdomen Ultrasound 02/17/19 12:23 IMPRESSION: Fatty liver. Spleen size upper limits of normal. Abdomen/Pelvis CT 02/18/19 00:00 IMPRESSION: Acute pancreatitis. Assessment and Plan - Diagnosis (1) Acute alcohol induced pancreatitis Is this a current diagnosis for this admission?: Yes Plan: Continue current regimen. I will monitor his lipase and CBC daily. (2) Leukocytosis Qualifiers: Leukocytosis type: unspecified Qualified Code(s): D72.829 - Elevated white blood cell count, unspecified Is this a current diagnosis for this admission?: Yes Plan: Trending down from 6.1-13.5. (3) Obesity (BMI 30-39.9) Is this a current diagnosis for this admission?: Yes Plan: Lifestyle modification advised (4) Tobacco dependence Is this a current diagnosis for this admission?: Yes Plan: Patient counseled and encouraged to quit smoking.
[2019-02-20] MEDS: NORMAL SALINE 1000 ML 1,000 ML IV PRN ×3 (00:21→23:39)
[2019-02-20] MEDS: HYDROMORPHONE HCL INJ/PF 2 MG/ML AMPULE IV PRN ×5 (02:29→23:38)
[2019-02-20] MEDS ORDERED: CHLORPROMAZINE HCL INJ 25 MG/1 ML AMPULE IV ONE (02:45)
[2019-02-20] MEDS ORDERED: CHLORPROMAZINE HCL INJ 25 MG/1 ML AMPULE ONE (03:38)
[2019-02-20 06:34] LABS: ANION GAP 9 (5-19); BLOOD UREA NITROGEN 9 mg/dL (7-20); CALCIUM 8.7 mg/dL (8.4-10.2); CARBON DIOXIDE 27 mmol/L (22-30); CHLORIDE 100 mmol/L (98-107); GLUCOSE 94 mg/dL (75-110); POTASSIUM 4.3 mmol/L (3.6-5.0)
[2019-02-20] MEDS: NICOTINE 14 MG/24 HR PATCH.TD24 TD PRN (10:45)
[2019-02-20] MEDS: PANTOPRAZOLE SODIUM 40 MG VIAL IV SCH (10:45)
[2019-02-20] MEDS: ENOXAPARIN SODIUM INJ 40 MG/0.4 ML DISP.SYRIN SUBCUT SCH (10:45)
--- NOTE | 2019-02-20 14:34 | PDOC PROGRESS REPORT ---
Subjective Progress Note for:: 02/20/19 Subjective:: This is a 38 year old male patient with no other chronic medical condition except for obesity and tobacco dependence presented with chief complaint of epigastric colicky pain after beginning of alcohol the past 2 to 3 days because his father recently. He was admitted for alcohol induced acute pancreatitis. Patient complains he has not been sleeping in the past 2 to 3 days as he says that the bed is extremely uncomfortable. He says he actually wants to go home AGAINST MEDICAL ADVICE today as he said he just really needs a good sleep at [facility]. He says he had abdominal pain has improved today. No nausea or vomiting. He does want to eat. Discussed the length about risks and complications of leaving AMA and he has agreed to stay today. He is currently NPO. Will advance diet to clear liquids today. Reason For Visit: ALCOHOL INDUCED PANCREATITIS Physical Exam Vital Signs: Temp Pulse Resp BP Pulse Ox 98.4 F 97 16 144/85 H 96 02/20/19 10:45 02/20/19 10:45 02/20/19 10:45 02/20/19 10:45 02/20/19 10:45 Intake & Output 02/19/19 02/20/19 02/21/19 06:59 06:59 06:59 Intake Total 4000 2979 1000 Output Total 2200 2100 Balance 2898 648 6916 Weight 290 lb 12.635 oz General appearance: PRESENT: no acute distress, well-developed, well-nourished Head exam: PRESENT: atraumatic, normocephalic Eye exam: PRESENT: conjunctiva pink, EOMI, PERRLA. ABSENT: scleral icterus Ear exam: PRESENT: normal external ear exam Mouth exam: PRESENT: moist, tongue midline Neck exam: ABSENT: carotid bruit, JVD, lymphadenopathy, thyromegaly Respiratory exam: PRESENT: clear to auscultation niels. ABSENT: rales, rhonchi, wheezes Cardiovascular exam: PRESENT: RRR. ABSENT: diastolic murmur, rubs, systolic murmur Pulses: PRESENT: normal dorsalis pedis pul GI/Abdominal exam: PRESENT: normal bowel sounds, soft, tenderness - Minimal direct epigastric tenderness negative rebound. ABSENT: distended, guarding, mass, organolmegaly, rebound Rectal exam: PRESENT: deferred Extremities exam: PRESENT: full ROM. ABSENT: calf tenderness, clubbing, pedal edema Neurological exam: PRESENT: alert, awake, oriented to person, oriented to place, oriented to time, oriented to situation, CN II-XII grossly intact. ABSENT: motor sensory deficit Results Laboratory Results: 02/19/19 06:05 02/20/19 05:30 02/20/19 05:30 Sodium 136.0 L Potassium 4.3 Chloride 100 Carbon Dioxide 27 Anion Gap 9 BUN 9 Creatinine 0.69 Est GFR ( Amer) > 60 Est GFR (Non-Af Amer) > 60 Glucose 94 Calcium 8.7 Lipase 620.0 H Impressions: Abdomen Ultrasound 02/17/19 12:23 IMPRESSION: Fatty liver. Spleen size upper limits of normal. Abdomen/Pelvis CT 02/18/19 00:00 IMPRESSION: Acute pancreatitis. Assessment and Plan - Diagnosis (1) Acute alcohol induced pancreatitis Is this a current diagnosis for this admission?: Yes Plan: Abdominal pain improving. Will advance diet to clear liquids today. Decrease Dilaudid from q2 to q6. (2) Obesity (BMI 30-39.9) Is this a current diagnosis for this admission?: Yes Plan: Counseled about weight loss. (3) Tobacco dependence Is this a current diagnosis for this admission?: Yes Plan: Counseled. Will increase nicotine patch. - Time Time Spent with patient: 25-34 minutes
[2019-02-20] MEDS ORDERED: TRAZODONE HCL 50 MG TABLET PO ONE (22:30)
[2019-02-21] MEDS: HYDROMORPHONE HCL INJ/PF 2 MG/ML AMPULE IV PRN (05:37)
[2019-02-21] MEDS: NORMAL SALINE 1000 ML 1,000 ML IV PRN ×2 (05:38→17:34)
[2019-02-21] MEDS: ENOXAPARIN SODIUM INJ 40 MG/0.4 ML DISP.SYRIN SUBCUT SCH (09:23)
[2019-02-21] MEDS: NICOTINE 21 MG/24 HR PATCH.TD24 TD SCH (09:23)
[2019-02-21] MEDS ORDERED: MAGNESIUM HYDROXIDE SUSP 30 ML UDCUP PO PRN (10:49)
[2019-02-21] MEDS: OXYCODONE-ACETAMINOPHEN 5-325 MG TABLET PO PRN ×3 (11:20→22:24)
--- NOTE | 2019-02-21 16:13 | PDOC PROGRESS REPORT ---
Subjective Progress Note for:: 02/21/19 Subjective:: This is a 38 year old male patient with no other chronic medical condition except for obesity and tobacco dependence presented with chief complaint of epigastric colicky pain after beginning of alcohol the past 2 to 3 days because his father recently. He was admitted for alcohol induced acute pancreatitis. 02/20: Patient complains he has not been sleeping in the past 2 to 3 days as he says that the bed is extremely uncomfortable. He says he actually wants to go home AGAINST MEDICAL ADVICE today as he said he just really needs a good sleep at home. He says he had abdominal pain has improved today. No nausea or vomiting. He does want to eat. Discussed the length about risks and complications of leaving AMA and he has agreed to stay today. He is currently NPO. Will advance diet to clear liquids today. 02/21: No acute event overnight. He says his abdominal pain continue to improve. He does say that he feels more pressure on the back area. He has been tolerating a full liquid diet. Will slowly advance to regular diet later today. Decrease IV fluids 100 cc/h. Denies any other acute complaints. Reason For Visit: ALCOHOL INDUCED PANCREATITIS Physical Exam Vital Signs: Temp Pulse Resp BP Pulse Ox 98.7 F 78 19 129/86 H 99 02/21/19 12:00 02/21/19 12:00 02/21/19 12:00 02/21/19 12:00 02/21/19 12:00 Intake & Output 02/20/19 02/21/19 02/22/19 06:59 06:59 06:59 Intake Total 2979 4522 Output Total 2100 1350 Balance 879 3172 Weight 290 lb 12.635 oz 295 lb 6.711 oz General appearance: PRESENT: no acute distress, well-developed, well-nourished Head exam: PRESENT: atraumatic, normocephalic Eye exam: PRESENT: conjunctiva pink, EOMI, PERRLA. ABSENT: scleral icterus Ear exam: PRESENT: normal external ear exam Mouth exam: PRESENT: moist, tongue midline Neck exam: ABSENT: carotid bruit, JVD, lymphadenopathy, thyromegaly Respiratory exam: PRESENT: clear to auscultation niels. ABSENT: rales, rhonchi, wheezes Cardiovascular exam: PRESENT: RRR. ABSENT: diastolic murmur, rubs, systolic mu rmur Pulses: PRESENT: normal dorsalis pedis pul GI/Abdominal exam: PRESENT: normal bowel sounds, soft. ABSENT: distended, guarding, mass, organolmegaly, rebound, tenderness Rectal exam: PRESENT: deferred Extremities exam: PRESENT: full ROM. ABSENT: calf tenderness, clubbing, pedal edema Neurological exam: PRESENT: alert, awake, oriented to person, oriented to place, oriented to time, oriented to situation, CN II-XII grossly intact. ABSENT: motor sensory deficit Results Laboratory Results: 02/19/19 06:05 02/20/19 05:30 Impressions: Abdomen Ultrasound 02/17/19 12:23 IMPRESSION: Fatty liver. Spleen size upper limits of normal. Abdomen/Pelvis CT 02/18/19 00:00 IMPRESSION: Acute pancreatitis. Assessment and Plan - Diagnosis (1) Acute alcohol induced pancreatitis Is this a current diagnosis for this admission?: Yes Plan: Abdominal pain improving. Will advance diet to clear liquids today. Decrease Dilaudid from q2 to q6. 02/21: Continue to improve. Advance to regular diet today. Switch IV pain medications to PO. (2) Obesity (BMI 30-39.9) Is this a current diagnosis for this admission?: Yes Plan: Counseled about weight loss. (3) Tobacco dependence Is this a current diagnosis for this admission?: Yes Plan: Counseled. Continue nicotine patch. - Time Time Spent with patient: 15-24 minutes
[2019-02-22] MEDS: OXYCODONE-ACETAMINOPHEN 5-325 MG TABLET PO PRN (02:48)
[2019-02-22] MEDS: NORMAL SALINE 1000 ML 1,000 ML IV PRN (02:49)
[2019-02-22 05:59] LABS: ABSOLUTE EOSINOPHILS # (AUTO) 0.2 10^3/uL (0.0-0.6); ABSOLUTE LYMPHOCYTES (AUTO) 0.9 10^3/uL (0.5-4.7); ABSOLUTE MONOCYTES (AUTO) 0.7 10^3/uL (0.1-1.4); ABSOLUTE NEUT (AUTO) 4.3 10^3/uL (1.7-8.2); BASOPHILS % (AUTO) 0.3 % (0-2); EOSINOPHILS % (AUTO) 2.9 % (0-6); HEMATOCRIT 34.6 % (37.9-51.0); HEMOGLOBIN 11.9 g/dL (13.5-17.0); LYMPHOCYTES % (AUTO) 14.4 % (13-45); MEAN CORPUSCULAR HGB CONC 34.2 g/dL (32.0-36.0); MEAN CORPUSCULAR VOLUME 88 fl (80-97); MONOCYTES % (AUTO) 11.1 % (3-13); PLATELET COUNT 223 10^3/uL (150-450); RED BLOOD COUNT 3.95 10^6/uL (4.35-5.55); RED CELL DISTRIBUTION WIDTH 13.6 % (11.5-14.0); SEGMENTED NEUTROPHILS % (AUTO) 71.3 % (42-78); TOTAL CELLS COUNTED % (AUTO) 100 %; WHITE BLOOD COUNT 6.1 10^3/uL (4.0-10.5)
[2019-02-22 06:18] LABS: ANION GAP 9 (5-19); BLOOD UREA NITROGEN 9 mg/dL (7-20); CALCIUM 8.3 mg/dL (8.4-10.2); CARBON DIOXIDE 23 mmol/L (22-30); CHLORIDE 105 mmol/L (98-107); GLUCOSE 107 mg/dL (75-110); POTASSIUM 3.6 mmol/L (3.6-5.0); SODIUM 137.3 mmol/L (137-145)
[2019-02-22] MEDS ORDERED: BISACODYL 10 MG SUPP.RECT PR ONE (08:56)
[2019-02-22] MEDS: ENOXAPARIN SODIUM INJ 40 MG/0.4 ML DISP.SYRIN SUBCUT SCH (10:08)
[2019-02-22] MEDS: NICOTINE 21 MG/24 HR PATCH.TD24 TD SCH (10:09)
[2019-02-22 11:53] VITALS: BP 188/99
--- NOTE | 2019-02-22 18:47 | PDOC DISCHARGE SUMMARY ---
General - Admit/Disc Date/PCP Admission Date/Primary Care Provider: 02/17/19 16:20 Discharge Date: 02/22/19 - Discharge Diagnosis (1) Acute alcohol induced pancreatitis Is this a current diagnosis for this admission?: Yes (2) Obesity (BMI 30-39.9) Is this a current diagnosis for this admission?: Yes (3) Tobacco dependence Is this a current diagnosis for this admission?: Yes - Additional Information Resuscitation Status: Full Code Discharge Diet: As Tolerated, Regular Discharge Activity: Activity As Tolerated Prescriptions: Nicotine [Nicoderm 21 mg/24 Hr Transderm Patch] 1 each TD DAILY #30 patch.[id number] Home Medications: Nicotine [Nicoderm 21 mg/24 Hr Transderm Patch] 1 each TD DAILY #30 patch.[id number] 02/22/19 History of Present Illness History of Present Illness: Admitting hospitalist's H&P: MARITO SORENSEN is a 38 year old male patient with no other chronic medical condition except for obesity and tobacco dependence presented with chief complaint of epigastric colicky pain. The patient been perfectly good state of health up until 2:30 AM this morning when he started to have colicky abdominal pain localized to his epigastric area and radiating into his back. Of note patient has been binge drinking for the last 48 hours. He has associated nausea and vomiting but denies diarrhea. Patient is in [place] to attend the of his father. His initial blood work shows leukocytosis of 16,000 and markedly elevated lipase of 3100. Hospital Course Hospital Course: This is a 38 year old male patient with no other chronic medical condition except for obesity and tobacco dependence presented with chief complaint of epigastric colicky pain after beginning of alcohol the past 2 to 3 days because his father recently. He was admitted for alcohol induced acute pancreatitis. He was initially made n.p.o. He was started on IV fluids and IV pain medications. He did show gradual improvement. His diet was eventually advanced and his abdominal pain resolved. He was able to tolerate full regular diet well. He was pain-free on day of discharge. He was counseled about alcohol use. Also counseled about smoking cessation and will be prescribed a nicotine patch. Physical Exam Vital Signs: Temp Pulse Resp BP Pulse Ox 98.4 F 66 17 188/99 H 96 02/22/19 11:52 02/22/19 11:52 02/22/19 11:52 02/22/19 11:52 02/22/19 11:52 Intake & Output 02/21/19 02/22/19 02/23/19 06:59 06:59 06:59 Intake Total 4522 3314 Output Total 1350 Balance 3172 3314 Weight 295 lb 6.711 oz 296 lb 15.402 oz General appearance: PRESENT: no acute distress, well-developed, well-nourished Head exam: PRESENT: atraumatic, normocephalic Eye exam: PRESENT: conjunctiva pink, EOMI, PERRLA. ABSENT: scleral icterus Ear exam: PRESENT: normal external ear exam Mouth exam: PRESENT: moist, tongue midline Neck exam: ABSENT: carotid bruit, JVD, lymphadenopathy, thyromegaly Respiratory exam: PRESENT: clear to auscultation niels. ABSENT: rales, rhonchi, wheezes Cardiovascular exam: PRESENT: RRR. ABSENT: diastolic murmur, rubs, systolic murmur Pulses: PRESENT: normal dorsalis pedis pul GI/Abdominal exam: PRESENT: normal bowel sounds, soft. ABSENT: distended, guarding, mass, organolmegaly, rebound, tenderness Rectal exam: PRESENT: deferred Extremities exam: PRESENT: full ROM. ABSENT: calf tenderness, clubbing, pedal edema Neurological exam: PRESENT: alert, awake, oriented to person, oriented to place, oriented to time, oriented to situation, CN II-XII grossly intact. ABSENT: motor sensory deficit Results Laboratory Results: 02/22/19 04:49 02/22/19 04:49 02/22/19 02/22/19 04:49 04:49 WBC 6.1 RBC 3.95 L Hgb 11.9 L Hct 34.6 L MCV 88 MCH 30.0 MCHC 34.2 RDW 13.6 Plt Count 223 Seg Neutrophils % 71.3 Lymphocytes % 14.4 Monocytes % 11.1 Eosinophils % 2.9 Basophils % 0.3 Absolute Neutrophils 4.3 Absolute Lymphocytes 0.9 Absolute Monocytes 0.7 Absolute Eosinophils 0.2 Absolute Basophils 0.0 Sodium 137.3 Potassium 3.6 Chloride 105 Carbon Dioxide 23 Anion Gap 9 BUN 9 Creatinine 0.64 Est GFR ( Amer) > 60 Est GFR (Non-Af Amer) > 60 Glucose 107 Calcium 8.3 L Impressions: Abdomen Ultrasound 02/17/19 12:23 IMPRESSION: Fatty liver. Spleen size upper limits of normal. Abdomen/Pelvis CT 02/18/19 00:00 IMPRESSION: Acute pancreatitis. Qualifiers - * PATIENT BEING DISCHARGED WITH ANY OF THE FOLLOWING DIAGNOSIS: No Acute Heart Failure - Is this a Heart Failure Patient?: No LVEF < 40%?: No- if no continue to question #3 3. Anticoagulant therapy for permanect/persistent/paraoxysmal Afib or Aflutter: N/A
== END 2019-02-22 12:08 | disposition home or self-care (01) | DRG 440 ==
LOC: ER 11:54 → EH 16:20 → 4N 19:54
PROVIDERS: ADMIT Internal Medicine; ATTEND Internal Medicine
DX: K85.20 Alcohol induced acute pancreatitis without necrosis or infection (principal); F17.210 Nicotine dependence, cigarettes, uncomplicated; E66.9 Obesity, unspecified; Z88.0 Allergy status to penicillin; F10.10 Alcohol abuse, uncomplicated
CPT/HCPCS: 36415; 74177; 76700; 80048; 80053; 80061; 80076; 81001; 83036; 83690; 85025; 96361; 96374; 96375; 96376; 99284; J1170; J1650; J2405; J3010; J3230; J3490; J7030; J7120; S0164